=== PATIENT | female | born 1950 | race Caucasian/White ===

== ENCOUNTER → 2017-02-14 | Outpatient (CLI) | payer MEDICARE ==
[~2017-02-14] MED LIST: GADODIAMIDE PF 287 MG/ML 20 ML VIAL (for RAD MRI) IV ONE; GADODIAMIDE PF 287 MG/ML 5 ML VIAL (for RAD MRI) IV ONE; GLYB5TAB3 PO; IBUP200C PO; LANTUS2P SQ; LISI-519 PO; LOVA20TA PO
--- NOTE | 2017-02-14 15:33 | RADRPT ---
EXAM DATE/TIME: 02/14/2017 13:59 [facility] COMPARISON: MRI CERVICAL SPINE W & W/O CONTRAST, July 31, 2015, 15:05. INDICATIONS : Syrinx of CSP. CONTRAST: 25 cc Omniscan (gadodiamide) IV MEDICAL HISTORY : Diabetes mellitus type 2. Hypertension. SURGICAL HISTORY : Appendectomy. Tennis elbow, Adrenal gland. ENCOUNTER: Initial ACUITY: > 1 year PAIN SCORE: 10/10 LOCATION: Bilateral neck down to fingers. TECHNIQUE: Multiplanar, multisequence MRI examination of the cervical spine was performed. FINDINGS: VERTEBRAE: Normal vertebral body height. Homogeneous marrow signal. ALIGNMENT: No evidence of subluxation. CORD: There is a new area of high T2 signal abnormality in the cord at C2 level measuring 5 x 4 mm. Area of T2 signal abnormality in the cord on previous studies again seen at C7 level measuring [address] is normal in caliber. POST FOSSA: The cerebellar tonsils are normal in position. POST-CONTRAST: Focal area of enhancement is seen within the lesion at C2 level. C2-C3: The thecal sac has a normal configuration. There is no evidence of disc herniation or spinal canal stenosis. The neural foramina are patent bilaterally. C3-C4: Shallow asymmetric left-sided protrusion abuts the ventral thecal sac without canal stenosis. The emil ral foramina are patent bilaterally. C4-C5: The thecal sac has a normal configuration. There is no evidence of disc herniation or spinal canal s tenosis. Minimal uncovertebral spurring on the right. The neural foramina are patent bilaterally. C5-C6: Minimal broad-based protrusion abuts the thecal sac. No canal stenosis. The neural foramina are paten t bilaterally. C6-C7: Small central protrusion abuts ventral thecal sac without canal stenosis. The neural foramina are pat ent bilaterally. C7-T1: The thecal sac has a normal configuration. There is no evidence of disc herniation or spinal canal s tenosis. The neural foramina are patent bilaterally. CONCLUSION: 1. Interval development of a small focal area of high T2 signal abnormality within the cord which dem onstrates enhancement at C2 level. This may be a demyelination process such as multiple sclerosis. 2. Area of signal abnormality in the cord at C7 level seen on previous study is less prominent but st ill present. This does not appear to be related to a syrinx. No enhancement identified. Gavin Rice MD on February 14, 2017 at 15:16 Board Certified Radiologist. This report was verified electronically.
== END ==
LOC: HRAD 13:31
PROVIDERS: ATTEND Neurological Surgery
DX: G95.0 Syringomyelia and syringobulbia (principal)
CPT/HCPCS: 72156; A9579

== ENCOUNTER → 2017-04-13 | Outpatient (CLI) | payer MEDICARE ==
[~2017-04-13] MED LIST changes: -GADODIAMIDE PF 287 MG/ML 20 ML VIAL (for RAD MRI) IV ONE
--- NOTE | 2017-04-13 12:11 | RADRPT ---
EXAM DATE/TIME: 04/13/2017 10:52 [facility] COMPARISON: No previous studies available for comparison. INDICATIONS : Multiple sclerosis. CONTRAST: 28 cc Omniscan (gadodiamide) IV MEDICAL HISTORY : Hypertension. Diabetes mellitus type 2. SURGICAL HISTORY : Appendectomy. Adrenal gland. ENCOUNTER: Subsequent ACUITY: 3 months PAIN SCORE: 0/10 LOCATION: head TECHNIQUE: Multiplanar, multisequence MRI of the brain was performed both prior to and following the administrat ion of paramagnetic contrast. FINDINGS: MRI of the brain is performed in sagittal, axial and coronal planes. The craniocervical junction and midline structures are unremarkable. Diffusion weighted images demonstrate no abnormality. There is n o evidence of acute cortical infarction, acute hemorrhage, mass effect or midline shift is seen. Ther e multiple areas of periventricular abnormality characteristic of multiple sclerosis. No active plaqu es are identified. Following the administration of contrast no abnormal enhancement is identified. P osterior fossa structures are unremarkable. CONCLUSION: 1. White matter plaques characteristic of multiple sclerosis. No active plaques are identified Domenic Jaeger MD on April 13, 2017 at 11:58 Board Certified Radiologist. This report was verified electronically.
== END ==
LOC: HRAD 09:46
PROVIDERS: ATTEND Specialist
DX: G35 Multiple sclerosis (principal)
CPT/HCPCS: 70553; A9579